=== PATIENT | female | born 1990 | race Caucasian/White ===

== ENCOUNTER → 2023-10-22 14:24 | Outpatient (REF) | payer BC, SELFPAY | LOC: RAD 14:24 | PROVIDERS: ATTENDING PHYSICIAN Nurse Practitioner Family | DX: M54.50 Low back pain, unspecified (principal) | CPT/HCPCS: 72110; 72220 ==

== ENCOUNTER → 2024-10-21 08:27 | Outpatient (REF) | payer BC, SELFPAY | LOC: PNTC 08:27 | PROVIDERS: ATTENDING PHYSICIAN Student in an Organized Health Care Education/Training Program | DX: O36.80X0 Pregnancy with inconclusive fetal viability, not applicable or unspecified (principal); O09.521 Supervision of elderly multigravida, first trimester; Z87.59 Personal history of other complications of pregnancy, childbirth and the puerperium | CPT/HCPCS: 76801 ==

== ENCOUNTER → 2024-12-04 13:27 | Outpatient (REF) | payer BC, SELFPAY | LOC: HWRAD 13:27 | PROVIDERS: ATTENDING PHYSICIAN Obstetrics & Gynecology; FAMILY PHYSICIAN Nurse Practitioner Family | DX: O02.1 Missed abortion (principal) | CPT/HCPCS: 76830; 76856 ==